=== PATIENT | female | born 1980 ===

== ENCOUNTER 2020-05-03 15:41 | Outpatient (REF) | payer OTHER, SELFPAY | END 2020-05-03 15:42 | disposition home or self-care (01) | LOC: HO.LAB 15:41 | PROVIDERS: Visit Provider Internal Medicine | DX: Z20.828 Contact with and (suspected) exposure to other viral communicable diseases (principal) | CPT/HCPCS: C9803; U0003 ==

== ENCOUNTER 2020-05-20 13:26 | Outpatient (REF) | payer OTHER, SELFPAY | END 2020-05-20 13:27 | disposition home or self-care (01) | LOC: HO.LAB 13:26 | PROVIDERS: Visit Provider Internal Medicine | DX: Z20.822 Contact with and (suspected) exposure to COVID-19 (principal) | CPT/HCPCS: 36415; C9803; U0003 ==

== ENCOUNTER 2020-06-14 10:35 | Emergency (ER) | payer OTHER, SELFPAY ==
[2020-06-14 11:05] VITALS: BP 140/69; PULSE 72; RESP 16; TEMP 36.9; O2SAT 100; BMI 26.9
--- NOTE | 2020-06-14 11:09 | ED_ITS ---
HPI - Skin/Abscess/Foreign Bdy General Chief complaint: Skin/Abscess/Foreign Body Stated complaint: SLIVER Time Seen by Provider: 06/14/20 11:09 Source: patient Mode of arrival: ambulatory Limitations: no limitations History of Present Illness HPI narrative: Right hand with splinter occurred at work complaint: foreign body Onset (ago): minute(s) Tetanus up to date: yes Location: R hand Severity: mild Context: none Treatments prior to arrival: other (Attempted room but she is right-hand dominant and couldnt with left hand) Related Data Allergies Allergy/AdvReac Type Severity Reaction Status Date / Time No Known Allergies Allergy Mild NONE Verified 06/14/20 11:04 Review of Systems Review of Systems: Constitutional: No Weight loss, No Fever, No Chills, No Night Sweats, No Fatigue, No Malaise ENT/Mouth: Negative Eyes: Negative Cardiovascular: Negative Respiratory: Negative Gastrointestinal: Negative Musculoskeletal: No joint pain, No Myalgias, No Joint Swelling Skin: No Skin Lesions, No rash, splinter in right hand as noted Neuro: Negative Psych: Negative Heme/Lymph: Negative Endocrine: Negative Yes all other systems are reviewed and are negative [facility] Social History Social History Alcohol intake: never Smoking Status: Never smoker Use of substances other than those prescribed or required for medical reasons: No Advance Directives: No Advance Directives Information Provided: Yes Physical Exam Vital Signs: Vital Signs: Last Vital Signs Temp 98.4 F 06/14/20 11:05 Pulse 72 06/14/20 11:05 Resp 16 06/14/20 11:05 BP 140/69 H 06/14/20 11:05 Pulse Ox 100 06/14/20 11:05 Body Mass Index 26.9 Reviewed Const: General: cooperative and healthy appearing; No acute distress or intoxicated appearing Nutritional Appearance: average body habitus Orientation/consciousness: patient oriented x3 HENMT: Head: Yes normal to inspection Ears: hearing grossly normal bilaterally Eyes: General: appearance normal, both eyes and all related structures Visual Pitt: normal visual pitt by confrontation Skin: General skin exam: no rashes or lesions noted Neuro: General: patient oriented x3 Extrem: General: Yes normal to inspection Hand/finger images: 1. Very superficial clearly visible less than 0.5 centimetre wooden splinter. Neurovascular intact. Full range of motion. No erythema or induration. Procedures Foreign Body Removal Site: right Description of foreign body: other (Wooden sliver) Sedation/Analgesia: none Technique: manual removal Complications: none Post-procedure exam: awake, alert Neurovascular: normal distal pulse, normal capillary fill, distal light touch sensation intact, distal motor function normal, no signs of compartment syndrome and other (Less than 0.5 cm wooden sliver removed with ease with forceps. Only went parallel to the skin and no additional foreign body.) Discharge Plan Discharge Clinical Impression: Embedded wood splinter Patient Disposition: Home, Self-Care Instructions: Soft Tissue Foreign Body (ED) Additional Instructions: Right palm very small with splinter which was removed with ease No evidence of any further foreign body Site was clean Home care as instructed Return if any concerns or worsening symptoms Thank you Referrals: Rohan Abdi MD [Primary Care Provider] - 1 week (As needed)
== END 2020-06-14 11:24 | disposition home or self-care (01) ==
PROVIDERS: Emergency Provider Emergency Medicine; PCP Internal Medicine
DX: L02.511 Cutaneous abscess of right hand (principal); M79.641 Pain in right hand
CPT/HCPCS: 10120; 99283; 99284

== ENCOUNTER 2020-07-20 12:56 | Emergency (ER) | payer OTHER, SELFPAY ==
--- NOTE | ~2020-07-20 | XR_ITS ---
EXAMINATION: XR KNEE, LEFT CLINICAL INFORMATION: Left knee pain. COMPARISON: None TECHNIQUE: Four views of the left knee. FINDINGS: Bones and soft tissues are normal. No fracture or joint effusion. Alignment is anatomic. Joint spaces are well maintained. No abnormal soft tissue calcification. XR/XR knee LT 3V IMPRESSION: Unremarkable left knee.
--- NOTE | ~2020-07-20 | US_ITS ---
EXAMINATION: US VENOUS ULTRASOUND WITH DOPPLER LOWER EXTREMITY, LEFT CLINICAL INFORMATION: Posterior knee pain and swelling. Intermittent lower extremity swelling. Lower extremity pain. COMPARISON: None TECHNIQUE: Ultrasound of the deep veins is performed from the hip to the calf with compression sonography and color and pulse Doppler assessment. Spectral analysis with color-flow imaging is performed. FINDINGS: There is normal venous compression and respiratory variation and augmented flow. The visualized common femoral vein, superficial femoral vein, profunda femoral vein, popliteal vein, and the trifurcation region shows no evidence of deep venous thrombosis. There is no significant popliteal fossa cyst. If the patient's symptoms persist, followup ultrasound in 5 days 7 days might be of value to exclude proximal propagation from a non-visualized calf vein. US/US venous duplex LE IMPRESSION: No DVT demonstrated in the left lower extremity.
[2020-07-20 13:11] VITALS: BP 113/50; PULSE 84; RESP 16; TEMP 36.7; O2SAT 98; BMI 27.3
--- NOTE | 2020-07-20 13:23 | ED_ITS ---
HPI - Extremity Injury (Lower) General Chief Complaint: Extremity Injury, Lower Stated Complaint: Leg pain No Injury Time Seen by Provider: 07/20/20 13:20 Source: patient Mode of arrival: ambulatory Limitations: no limitations History of Present Illness HPI Narrative: States has been having left knee pain for the past 1 week she does do a lot of longstanding and strenuous activity at work and has been having pain and posterior knee sometimes going down to left lower leg and intermittently but felt like it is swollen. Denies any recall of overt injury. MD complaint: knee injury Onset (ago): day(s) Relieving factors: immobilization and rest Exacerbating factors: movement Other symptoms: none Related Data Previous Rx's Medication Instructions Recorded ibuprofen 800 mg PO Q8H PRN #30 tab 07/20/20 Allergies Allergy/AdvReac Type Severity Reaction Status Date / Time No Known Allergies Allergy Mild NONE Verified 06/14/20 11:04 Review of Systems Review of Systems: Constitutional: No Weight loss, No Fever, No Chills, No Night Sweats, No Fatigue, No Malaise ENT/Mouth: No Hearing loss, No Ear Pain, No Nasal Congestion, No Sinus Pain, No Hoarseness, No sore throat, No Rhinorrhea, No Swallowing Difficulty Eyes: Negative Cardiovascular: No Chest Pain, No SOB, No Dyspnea on Exertion, No Orthopnea, No Edema, No Palpitations Respiratory: Negative Gastrointestinal: Negative Genitourinary: Negative Musculoskeletal: No joint pain, No Myalgias, No Joint Swelling, left lower extremity pain/knee pain as noted per HPI Skin: No Skin Lesions, No rash Neuro: No Weakness, No Numbness, No Paresthesias, No Loss of Consciousness, No Dizziness, No Headache Psych: No Social Issues Heme/Lymph: No Bruising, No Bleeding,No Lymphadenopathy Endocrine: No Polyuria, No Polydipsia, No Temperature Intolerance Yes all other systems are reviewed and are negative [facility] Past Medical History Medical History (Updated 07/20/20 @ 15:33 by Milton Zeng NP) Asthma Social History Social History Alcohol intake: never Smoking Status: Never smoker Advance Directives: Yes Advance Directives Information Provided: No Advance Directives on File: No Physical Exam Vital Signs: Vital Signs: Last Vital Signs Temp 98.0 F 07/20/20 13:11 Pulse 84 07/20/20 13:11 Resp 16 07/20/20 13:11 BP 113/50 L 07/20/20 13:11 Pulse Ox 98 07/20/20 13:11 Body Mass Index 27.3 Reviewed Const: General: cooperative and healthy appearing; No acute distress or intoxicated appearing Nutritional Appearance: average body habitus Orientation/consciousness: patient oriented x3 HENMT: Head: Yes normal to inspection Ears: hearing grossly normal bilaterally Eyes: General: appearance normal, both eyes and all related structures Visual Anderson: normal visual anderson by confrontation Neck: Neck: Yes normal visual inspection, No positive Brudzinski's sign, No positive Kernig's sign and No tender Thyroid: Thyroid normal Chest: Chest palpation & inspection: normal inspection of the chest Resp: Effort & Inspection: normal respiratory effort Auscultation: clear to auscultation bilaterally Cardio: Jugular venous distension: no JVD Rhythm: regular rhythm Heart sounds: S1 normal heart sound present and S2 normal heart sound present : General: Yes no CVA tenderness Back/Spine/Pelvis: Back: no CVA tenderness Skin: General skin exam: no rashes or lesions noted Neuro: General: patient oriented x3 Extrem: General: Yes normal to inspection Left lower extremity: normal to inspection, full ROM, normal capillary refill and knee (State pain with exertion and certain movements when she walks.) Details: normal to inspection and normal ROM; no swelling; no edema and joint enlargement noted Course Course Course Narrative: The mentation injury versus arthralgia versus Griffiths cyst versus lower extremity DVT. No obvious infectious pathology on exam. Neurovascularly intact. Reevaluation(s) Reevaluation #1: X-ray without acute findings, left lower extremity ultrasound without evidence of DVT. Will send home with Sesar wrap, NSAIDs and ortho follow- up. MDM - Extremity Injury (Lower) Medical Records Attestation: I reviewed the patient's medical records. Lab Data Attestation: I reviewed the patient's lab results. Imaging Data Left lower extremity ultrasound: Radiologist's impression: [address] [id number] ReportSigned Patient: Yasmine MarleyMR#: [id number]: 1980Acct:[id number]/Sex: 40 / FADM Date: 07/20/20Loc: HO.EDAttending Dr: Ordering Physician: Milton Zeng NP Date of Service: 07/20/20 Procedure(s): US venous duplex LE LT Accession Number(s): [id number] cc: Milton Zeng [employer] DEPARTMENT SUPERVISOR~ EXAMINATION: US VENOUS ULTRASOUND WITH DOPPLER LOWER EXTREMITY, LEFT CLINICAL INFORMATION: Posterior knee pain and swelling. Intermittent lower extremity swelling. Lower extremity pain. COMPARISON: None TECHNIQUE: Ultrasound of the deep veins is performed from the hip to the calf with compression sonography and color and pulse Doppler assessment. Spectral analysis with color-flow imaging is performed. FINDINGS: There is normal venous compression and respiratory variation and augmented flow. The visualized common femoral vein, superficial femoral vein, profunda femoral vein, popliteal vein, and the trifurcation region shows no evidence of deep venous thrombosis. There is no significant popliteal fossa cyst. If the patient's symptoms persist, followup ultrasound in 5 days 7 days might be of value to exclude proximal propagation from a non-visualized calf vein. US/US venous duplex LE LT IMPRESSION: No DVT demonstrated in the left lower extremity. Dictated By:HILL GENAO MDSigned By:<Electronically signed by HILL GENAO MD in OV>07/20/20 1508 DD/ 1323TD/TT: Inseminator: MART Left knee x-ray: Radiologist's impression: [address] [id number] ReportSigned Patient: Yasmine MarleyMR#: [id number]: 1980Acct:[id number]/Sex: 40 / FADM Date: 07/20/20Loc: EDAttending Dr: Ordering Physician: Milton Zeng NP Date of Service: 07/20/20 Procedure(s): XR knee LT 3V Accession Number(s): [id number] cc: Milton Zeng [employer] DEPART[employer] SUPERVISOR~ EXAMINATION: XR KNEE, LEFT CLINICAL INFORMATION: Left knee pain. COMPARISON: None TECHNIQUE: Four views of the left knee. FINDINGS: Bones and soft tissues are normal. No fracture or joint effusion. Alignment is anatomic. Joint spaces are well maintained. No abnormal soft tissue calcification. XR/XR knee LT 3V IMPRESSION: Unremarkable left knee. Dictated By:ARIELLE BAUTISTA MDSigned By:<Electronically signed by ARIELLE BAUTISTA MD in OV>07/20/20 1415 DD/ 1323TD/TT: Inseminator: VIET Discharge Plan Discharge Clinical Impression: Acute knee pain Qualifiers: Laterality: left Qualified Code(s): M25.562 - Pain in left knee Patient Disposition: Home, Self-Care Instructions: Knee Pain (ED) Additional Instructions: Sesar wrap to the left knee Warm compresses Elevate frequently Anti-inflammatory such as ibuprofen as prescribed Follow-up as discussed Return if any concerns worsen symptom Thank you Prescriptions: New ibuprofen 800 mg tablet 800 mg PO Q8H PRN (Reason: pain) Qty: 30 RF: 0 Referrals: Devan Briggs MD [Physician] - 2 weeks Stand Alone Forms: Work/School Release Discharge Date/Time: 07/20/20 15:41
== END 2020-07-20 15:41 | disposition home or self-care (01) ==
PROVIDERS: Emergency Provider Emergency Medicine; PCP Internal Medicine
DX: M25.562 Pain in left knee (principal)
CPT/HCPCS: 73562; 93971; 99283; 99284

== ENCOUNTER 2020-08-07 08:08 | Outpatient (REF) | payer OTHER, SELFPAY ==
--- NOTE | ~2020-08-07 | XR_ITS ---
EXAMINATION: KNEE X-RAY CLINICAL INFORMATION: Left knee pain COMPARISON: Previous x-ray 07/20/2020 TECHNIQUE: Standing AP view of both knees and sunrise view of the left knee FINDINGS: Left knee: Bone alignment is normal. No fracture or dislocation is seen. The joint spaces are normal. Soft tissues are normal. Standing AP view of the right knee is unremarkable. XR/XR knee standing BI IMPRESSION: Unremarkable exam.
--- NOTE | ~2020-08-07 | XR_ITS ---
EXAMINATION: KNEE X-RAY CLINICAL INFORMATION: Left knee pain COMPARISON: Previous x-ray 07/20/2020 TECHNIQUE: Standing AP view of both knees and sunrise view of the left knee FINDINGS: Left knee: Bone alignment is normal. No fracture or dislocation is seen. The joint spaces are normal. Soft tissues are normal. Standing AP view of the right knee is unremarkable. XR/XR knee LT 2V IMPRESSION: Unremarkable exam.
== END 2020-08-07 08:09 | disposition home or self-care (01) ==
LOC: HO.HOSX 08:08
PROVIDERS: Visit Provider Physician Assistant
DX: M25.562 Pain in left knee (principal); M76.892 Other specified enthesopathies of left lower limb, excluding foot
CPT/HCPCS: 73560; 73565; 99202

== ENCOUNTER 2020-09-27 14:00 | Outpatient (RCR) | payer OTHER, SELFPAY ==
--- NOTE | 2020-08-29 15:37 | MHC.PT.EP ---
[facility] [place] Office [place] Office [place] Office [address] Gabriela Erickson [address] [phone] F: [phone] F: [phone] F: [phone] F: [phone] Physical Therapy Plan of Care Date of Evaluation: 08/29/20 Date of Surgery: Diagnosis: other specified enthesopathies of left lower limb, excluding foot Assessment: 40 y/o female referred to PT with 'other enthesopathies.' She has had pain for one year of left lower leg into her foot that gets swollen and painful resulting in pain and difficulty with prolonged standing, walking, and wearing shoes/socks. Examination shows WNL knee AROM, decreased lumbar and L hip AROM, decreased L LE strength, no noted edema, increased pain, and impaired gait pattern. S/s consistent with hip and lumbar dysfunction. Recommend PT 2x/week for 5 weeks to address impairments, implement HEP, and optimize functional mobility. Frequency and Duration: The patient will be seen 2x/week for 5 weeks Short Term Goals: 3 weeks 1. I with HEP 2. Pt will improve hip flexion to 115 3. pt will demonstrate WNL lumbar AROM Half-Way Goals: 5 weeks 1. I with HEP and self management of sx 2. Pt will be able to walk > 15 min with pain < 3/10 and heel strike initial contact 3. Pt will be able to stand > 60 min with pain < 3/10 Treatment Plan: Modalities to reduce pain, spasms and effusion. Manual therapy to restore motion and function. Therapeutic exercise to improve strength and flexibility. Neuromuscular re-education for posture and balance. Therapeutic activities to return to functional activities of daily living. Electronically signed by: Misty Sena PT Please sign and return to therapist. Thank you for your referral.
--- NOTE | 2020-11-12 15:48 | MHC.PT.DC ---
[facility] [place] Office [place] Office [place] Office [address] Gabriela Erickson [address] [phone] F: [phone] F: [phone] F: [phone] F: [phone] Physical Therapy Discharge Report Diagnosis: other specified enthesopathies of left lower limb, excluding foot Date of Surgery: Date of Evaluation: 08/29/20 Date of Discharge: 11/12/20 Treatments to Date: 5 Cancellations to Date: 4 No Shows to Date: 1 Discharge Status: Discharge Summary: Pt did not f/u with further visits and d/c at this time. At time of last session, pt to have an MRI at [facility] September 24 MD follow up September 25. 09/27 per pt she is going to be OOW x 3 weeks in a LE boot?? per MD. All ex done on mat pt advised to contact MD to clarify activity for PT. Will discuss plan with primary PT. Electronically signed by: Misty Sena PT Please sign and return to therapist. Thank you for your referral.
== END 2020-11-12 15:48 | disposition home or self-care (01) ==
LOC: HO.PT 14:00
PROVIDERS: Visit Provider Physician Assistant
DX: M76.892 Other specified enthesopathies of left lower limb, excluding foot (principal)
CPT/HCPCS: 97110; 97162

== ENCOUNTER 2023-04-16 15:54 | Emergency (ER) | payer OTHER, SELFPAY ==
--- NOTE | ~2023-04-16 | XR_ITS ---
EXAMINATION: XR CHEST CLINICAL INFORMATION: Cough. Shortness of breath. COMPARISON: None available. TECHNIQUE: 2 views of the chest were obtained. FINDINGS: No significant abnormality is noted involving the heart, lungs, mediastinum, bony thorax or soft tissues. XR/XR chest 2V IMPRESSION: Unremarkable examination.
[2023-04-16 16:00] VITALS: BP 123/65; PULSE 88; RESP 16; TEMP 36.8; O2SAT 98; BMI 29.3
--- NOTE | 2023-04-16 16:02 | ED_ITS ---
HPI - URI/Sore Throat General Chief Complaint: Upper Respiratory Symptoms Stated Complaint: sob,asthma Time Seen by Provider: 04/16/23 16:45 Source: patient, RN notes reviewed and old records reviewed Mode of arrival: ambulatory History of Present Illness HPI Narrative: 43-year-old female with past medical history of asthma, COVID-19 positive last week, presenting to the ED complaining of persistent dry cough since COVID-19 diagnosis. Admits to using inhaler at home with some relief. Reports mild SOB and chest tightness. Denies fever, chills, chest pain, recent travel, pedal edema, sore throat ear pain MD elicited complaint: cough Related Data Home Medications Medication Instructions Recorded Confirmed albuterol sulfate 2.5 mg/3 mL 2.5 mg inhalation Q6H 08/07/20 (0.083 %) solution for nebulization Previous Rx's Medication Instructions Recorded ibuprofen 800 mg tablet 800 mg PO Q8H PRN pain #30 tabs 07/20/20 benzonatate 100 mg capsule 100 mg PO TID PRN cough #14 caps 04/16/23 hydrocodone-homatropine 5 mg-1.5 5 ml PO Q4-6H PRN cough 3 days #60 04/16/23 mg/5 mL (5 mL) oral syrup (Hycodan) mL prednisone 20 mg tablet 40 mg (2 x 20 mg) PO DAILY 5 days 04/16/23 #10 tabs Allergies Allergy/AdvReac Type Severity Reaction Status Date / Time No Known Allergies Allergy Mild NONE Verified 08/07/20 09:10 Review of Systems Review of Systems: Constitutional: No Fever, No Chills ENT/Mouth: No Ear Pain, No Nasal Congestion, No Sinus Pain, No Hoarseness, No sore throat, No Rhinorrhea, No Swallowing Difficulty Cardiovascular: No Chest Pain, No SOB Respiratory: + Cough, No Sputum, No Wheezing Gastrointestinal: No Nausea, No Vomiting, No Abdominal pain Musculoskeletal: No joint pain, No Myalgias, No Joint Swelling Skin: No Skin Lesions, No rash Neuro: No Weakness Yes all other systems are reviewed and are negative Constitutional: Constitutional: Reports as per [facility] Past Medical History Attestation statement: The following information was validated with the patient. Source: old records reviewed Medical History Asthma Social History Social History Alcohol intake: never Advance Directives: No Advance Directives Information Provided: No Current occupational status: employed Current occupation: [employer] Physical Exam Vital Signs: Vital Signs: Last Vital Signs Temp 98.2 F 04/16/23 16:00 Pulse 77 04/16/23 17:23 Resp 20 04/16/23 17:23 BP 123/65 04/16/23 16:00 Pulse Ox 98 04/16/23 16:00 O2 Del Method Room Air 04/16/23 16:00 BMI result Body Mass Index 29.3 Const: General: cooperative, healthy appearing and no acute distress Orientation/consciousness: patient oriented x3 Limitations: no limitations HEENT: Head: Yes normal to inspection and Yes atraumatic Ears: hearing grossly normal bilaterally General nose exam: Normal external nose present Face and sinus: Yes normal facial exam Throat: Yes posterior oropharynx normal, Yes tonsils normal, Yes uvula midline and No uvular edema Eyes: General: appearance normal, both eyes and all related structures EOM: EOMs intact bilaterally Neck: Neck: Yes normal visual inspection and Yes no meningeal signs Resp: Effort & Inspection: normal respiratory effort, Actively coughing Quality: actively coughing and no respiratory distress Auscultation: clear to auscultation bilaterally, no crackles, no rales, no rhonchi and no wheezes Cardio: Rate: regular rate Heart sounds: S1 normal heart sound present and S2 normal heart sound present Skin: Rashes: no rashes Wounds: no wounds Neuro: General: patient oriented x3, tone normal and no meningeal signs Cranial nerves: Yes CN's II-XII intact bilaterally Gait exam (Neuro): Normal gait present Extrem: General: Yes normal to inspection Course Course Course Narrative: This is an RME: Additional HPI, ROS, PE not included below will be deferred to primary provider. Patient is a 43-year-old female who presents emergency department for evaluation. She reports that she Tested positive for COVID-19 1 week ago, reports negative testing 2 days ago, continues to have cough, shortness of breath, has had no relief from inhaler/nebulizer. XR chest 2V IMPRESSION: Unremarkable examination. -Flu negative >Results discussed with patient including worrisome signs and symptoms and strict return precautions, and when to return to the emergency department. They verbalized understanding and feel safe for discharge at this time. Medications Administered Discontinued Medications Generic Name Dose Route Start Last Admin Trade Name Radha PRN Reason Stop Dose Admin Albuterol/Ipratropium 3 ml 04/16/23 16:56 04/16/23 17:19 Albuterol/Iprat 2.5/0.5mg 3 Ml Ampul.Neb INHALE 04/16/23 16:57 3 ml ONCE ONE Administration Benzonatate 100 mg 04/16/23 17:07 04/16/23 17:20 Benzonatate 100 Mg Capsule PO 04/16/23 17:08 100 mg ONCE ONE Administration Hydrocodone Bit/Homatropine Methylb 5 ml 04/16/23 17:07 04/16/23 17:20 Hydrocodone/Homat 5/1.5/5 Ml 5 Ml Syrup PO 04/16/23 17:08 5 ml ONCE ONE Administration Prednisone 40 mg 04/16/23 16:56 04/16/23 17:22 Prednisone 20 Mg Tablet PO 04/16/23 16:57 40 mg ONCE ONE Administration Medical Decision Making Medical Decision Making MDM Narrative: 43-year-old female with past medical history of asthma, COVID-19 positive last week, presenting to the ED complaining of persistent dry cough since COVID-19 diagnosis. On exam vital signs stable, NAD, nontoxic appearing, persistent dry cough appreciated. Lungs CTA. Concern for viral illness vs pneumonia vs bronchitis. Low suspicion for ACS/PE or DVT Plan: CXR, influenza testing, DuoNeb, p.o. prednisone/Tessalon Perle and Hycodan Please refer to course for remaining clinical decision making, interpretation of labs/imaging results, and discussions with consultants and/or family members. Differential Diagnosis Differential Diagnoses: The differential diagnosis associated with the presentation includes As above Admission/Observation Consideration of admission/observation: Escalation of care including admission/observation considered Lab Data [facility] Lab Attestation statement: I reviewed the patient's lab results. Labs: Lab Results 04/16/23 Range/Units 17:00 Influenza Type A (JO) Negative (Negative) Influenza Type B (JO) Negative (Negative) Influenza A & B Note See Note Independent Interpretation I performed an independent interpretation of an: Plain X-Ray Radiology Impression Discussion of test interpretation with radiology: I have reviewed the radiologist's reading. External Record Review External record reviewed: Inpatient record, Office record, Outpatient record, Prior outpatient labs, Prior outpatient radiology, Primary care record and Outside ED record Tests considered The following testing was considered but not selected: As above Prescription Management I considered prescription management with: Pain Medication and Antibiotic Chronic Conditions Patient?s care impacted by: Other (asthma) Discharge Plan Discharge Clinical Impression: Bronchitis Patient Disposition: Home, Self-Care Instructions: Acute Bronchitis (ED) Additional Instructions: Your x-ray does not show pneumonia. You likely have bronchitis Continue to use inhaler at home It is recommended you have a nebulizer machine at home, please talk to your PCP about this Tessalon Perles for cough, take as needed Hycodan is a in opiate cough medication, take only when cough is severe for the next 3 days Prednisone as a steroid Follow-up with her doctor if Symptoms persist or worsen return to the ED Prescriptions: New prednisone 20 mg tablet 40 mg PO DAILY 5 Days Qty: 10 0RF benzonatate 100 mg capsule 100 mg PO TID PRN (Reason: cough) Qty: 14 0RF hydrocodone-homatropine [Hycodan] 5-1.5 mg/5 mL (5 mL) syrup 5 ml PO Q4-6H PRN (Reason: cough) 3 Days Qty: 60 0RF Rx Instructions: Partial Fill upon patient request. No Action ibuprofen 800 mg tablet 800 mg PO Q8H PRN (Reason: pain) Qty: 30 0RF Referrals: Physician,Unknown J [Primary Care Provider] - 1 week
[2023-04-16] MEDS: Albuterol/Iprat 2.5/0.5MG 3 ML AMPUL.NEB INHALE (17:19)
[2023-04-16] MEDS: HYDROcodone/Homat 5/1.5/5 ML 5 ML SYRUP PO (17:20)
[2023-04-16] MEDS: Benzonatate 100 MG CAPSULE PO (17:20)
[2023-04-16] MEDS: predniSONE 20 MG TABLET 40 MG PO (17:22)
[2023-04-16 17:23] VITALS: PULSE 77; RESP 20; O2SAT 98
[2023-04-16 17:27] LABS: IDNOW Serial# 9DB6401D; Influenza A Negative (Negative); Influenza B2 Negative (Negative)
== END 2023-04-16 18:07 | disposition home or self-care (01) ==
PROVIDERS: Physician Assistant; Emergency Provider Emergency Medicine Emergency Medical Services
DX: J40 Bronchitis, not specified as acute or chronic (principal); R06.02 Shortness of breath; R07.89 Other chest pain; R05.9 Cough, unspecified; Z79.899 Other long term (current) drug therapy; Z20.828 Contact with and (suspected) exposure to other viral communicable diseases; Z20.822 Contact with and (suspected) exposure to COVID-19
CPT/HCPCS: 71046; 87502; 94640; 99283; 99284

== ENCOUNTER 2023-05-17 14:08 | Emergency (ER) | payer OTHER, SELFPAY ==
--- NOTE | ~2023-05-17 | XR_ITS ---
EXAMINATION: XR FOOT, LEFT CLINICAL INFORMATION: Pain in the bottom of the left foot. COMPARISON: None available. TECHNIQUE: AP, lateral, and oblique views of the left foot. FINDINGS: No evidence of acute fracture or dislocation. Normal osseous mineralization. No focal erosion. Small posterior calcaneal spur is noted at the insertion of Achilles tendon. Soft tissue swelling is noted over the dorsum of the foot. No evidence of radiopaque foreign body, soft tissue calcifications or soft tissue air. XR/XR foot LT 2V IMPRESSION: No acute or significant osseous abnormality noted.
[2023-05-17 14:29] VITALS: BP 117/57; PULSE 84; RESP 18; TEMP 36.9; O2SAT 99
--- NOTE | 2023-05-17 14:29 | ED_ITS ---
HPI - General Adult General Chief complaint: Extremity Injury, Lower Stated complaint: L leg/foot pain Time Seen by Provider: 05/17/23 17:31 Source: patient Mode of arrival: ambulatory Limitations: no limitations History of Present Illness HPI narrative: Patient comes to emergency room complaining of a left foot pain on the plantar aspect for 2 years. Patient states that when she walks she feels small nodule in her foot which hurts. Patient states that she has been seen by Podiatry, has had physical therapy, was diagnosed with tendinitis, has had cortisone shots but nothing is helping. Patient denies any numbness or tingling Related Data Home Medications Medication Instructions Recorded Confirmed albuterol sulfate 2.5 mg/3 mL 2.5 mg inhalation Q6H 08/07/20 (0.083 %) solution for nebulization Previous Rx's Medication Instructions Recorded ibuprofen 800 mg tablet 800 mg PO Q8H PRN pain #30 tabs 07/20/20 benzonatate 100 mg capsule 100 mg PO TID PRN cough #14 caps 04/16/23 hydrocodone-homatropine 5 mg-1.5 5 ml PO Q4-6H PRN cough 3 days #60 04/16/23 mg/5 mL (5 mL) oral syrup (Hycodan) mL prednisone 20 mg tablet 40 mg (2 x 20 mg) PO DAILY 5 days 04/16/23 #10 tabs ibuprofen 600 mg tablet 600 mg PO Q8H PRN pain #20 tabs 05/17/23 Allergies Allergy/AdvReac Type Severity Reaction Status Date / Time No Known Allergies Allergy Mild NONE Verified 05/17/23 14:31 Review of Systems Review of Systems: Constitutional : No Weight loss, No Fever, No Chills, No Night Sweats, No Fatigue, No Malaise ENT/Mouth : No Hearing loss, No Ear Pain, No Nasal Congestion, No Sinus Pain, No Hoarseness, No sore throat, No Rhinorrhea, No Swallowing Difficulty Eyes: No Eye Pain, No Swelling, No Redness, No Foreign Body, No Discharge, No Vision Changes Cardiovascular : No Chest Pain, No SOB, No Dyspnea on Exertion, No Orthopnea, No Edema, No Palpitations Respiratory : No Cough, No Sputum, No Wheezing, No Smoke Exposure, No Dyspnea Gastrointestinal : No Nausea, No Vomiting, No Diarrhea, No Constipation, No abdominal Pain, No Hematochezia, No Melena Genitourinary : no irregular bleeding, No Dysuria, No Urinary Frequency, No Hematuria, No Urinary Incontinence, No Urgency, No Flank Pain, No Urinary Flow Changes, No Hesitancy Musculoskeletal : Complaining of pain in the ball of the foot on the left side for 2 years, No joint pain, No Myalgias, No Joint Swelling Skin : No Skin Lesions, No rash Neuro : No Weakness, No Numbness, No Paresthesias, No Loss of Consciousness, No Dizziness, No Headache Psych : No Anxiety/Panic, No Depression, No SI/HI/AH/VH, No Social Issues, Heme/Lymph: No Bruising, No Bleeding,No Lymphadenopathy Endocrine : No Polyuria, No Polydipsia, No Temperature Intolerance PMFSH Past Medical History Onset Date is defined in the Problem List Problems that require an onset date and time if occurred within 24 hrs of arrival to the ED Aortic Dissection and Rupture; Neurologic impairment; Cardiopulmonary Arrest; Endotracheal Intubation; Insertion or Replacement of Mechanical Circulatory Assist Device Medical History Asthma Social History Social History Alcohol intake: never Advance Directives: No Advance Directives Information Provided: No Current occupational status: employed 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 Oriented X3. No acute distress. Eyes: Pupils equal, round and reactive to light. ENT: Pharynx normal. Neck: Normal inspection. Neck supple. No lymph nodes noted. No crepitus CVS: Normal heart rate and rhythm. Pulses normal. Normal S1 and S2 Respiratory: No respiratory distress. Breath sounds normal. No Wheezing. No rales Abdomen: Soft and nontender. No rigidity. No distention. Skin: Skin warm and dry. Normal skin color. Normal skin turgor. Extremities: No lower extremity edema. No Lacerations. No Rash. Pain to palpation on the plantar aspect of the left foot between metatarsals. Very small nodule palpable, movable. Neuro: Oriented X 3. No motor deficit. No sensory deficit. Moving all extremities. No slurred speech. CN 2 through 12 grossly intact Psych: calm, cooperative, normal affect Course Course Course Narrative: This is a rapid medical exam. deferred additional HPI, ROS, PE to primary provider. 43 yo female here with complaints of left foot pain, worsened with WB and concern for lump she feels on the foot acute on chronic x 3 weeks (although has had pain for years). Will obtain x-rays VSS Medical Decision Making Medical Decision Making [facility] Narrative: -my interpretation of x-ray of the left foot: No obvious abnormalities. No fractures -I discussed the physical exam with the patient, patient likely has a Valles's neuroma, patient will follow-up with her primary care physician, may need to be referred to Podiatry. 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 If you have any worsening or new symptoms, please return to the emergency room or call 911 Prescriptions: New ibuprofen 600 mg tablet 600 mg PO Q8H PRN (Reason: pain) Qty: 20 0RF No Action ibuprofen 800 mg tablet 800 mg PO Q8H PRN (Reason: pain) Qty: 30 0RF prednisone 20 mg tablet 40 mg PO DAILY 5 Days Qty: 10 0RF benzonatate 100 mg capsule 100 mg PO TID PRN (Reason: cough) Qty: 14 0RF hydrocodone-homatropine [Hycodan] 5-1.5 mg/5 mL (5 mL) syrup 5 ml PO Q4-6H PRN (Reason: cough) 3 Days Qty: 60 0RF Rx Instructions: Partial Fill upon patient request.
--- NOTE | 2023-05-17 19:12 | PC.NURSE ---
This RN took over pt assignment @ 1911. Pt ready for d/c prior to this RNs arrival.
== END 2023-05-17 19:16 | disposition home or self-care (01) ==
PROVIDERS: Emergency Provider Emergency Medicine
DX: G57.62 Lesion of plantar nerve, left lower limb (principal); M79.672 Pain in left foot; Z79.899 Other long term (current) drug therapy
CPT/HCPCS: 73620; 99283; 99284

== ENCOUNTER 2024-02-02 10:40 | Emergency (ER) | payer OTHER, SELFPAY ==
--- NOTE | ~2024-02-02 | XR_ITS ---
EXAMINATION: XR FOOT, RIGHT CLINICAL INFORMATION: Puncture wound. Evaluate for plantar foreign body. COMPARISON: None available. TECHNIQUE: AP, lateral, and oblique views of the right foot. FINDINGS: No radiopaque foreign body. No fracture or dislocation. No joint space narrowing or marginal osteophytes. Tiny dorsal calcaneal spur. XR/XR foot RT min 3V IMPRESSION: 1. No radiopaque foreign body. 2. Tiny dorsal calcaneal spur. Electronically signed by: David Baig MD 02/02/2024 12:01 PM EDT
--- NOTE | 2024-02-02 11:06 | ED_ITS ---
HPI - General Adult General Chief complaint: Skin/Abscess/Foreign Body Stated complaint: r foot pain Time Seen by Provider: 02/02/24 11:26 Source: patient, RN notes reviewed and old records reviewed Mode of arrival: ambulatory History of Present Illness ED Provider: Alba Urban PA-C HPI narrative: 43-year-old female with a past medical history of asthma presenting to ED complaining right foot pain s/p accidentally stepping on a broken wine glass a few days ago. Reports increasing pain with ambulation and weight-bearing. States was wearing Crocs at time of incident. Denies injury to other area. Concern for retained glass. Tetanus unknown. Related Data Home Medications ?Medication ?Instructions ?Recorded ?Confirmed albuterol sulfate 2.5 mg/3 mL 2.5 mg inhalation Q6H 08/07/20 (0.083 %) solution for nebulization Previous Rx's ?Medication ?Instructions ?Recorded ibuprofen 800 mg tablet 800 mg PO Q8H PRN pain #30 tabs 07/20/20 benzonatate 100 mg capsule 100 mg PO TID PRN cough #14 caps 04/16/23 hydrocodone-homatropine 5 mg-1.5 5 ml PO Q4-6H PRN cough 3 days #60 04/16/23 mg/5 mL (5 mL) oral syrup (Hycodan) mL prednisone 20 mg tablet 40 mg (2 x 20 mg) PO DAILY 5 days 04/16/23 #10 tabs ibuprofen 600 mg tablet 600 mg PO Q8H PRN pain #20 tabs 05/17/23 cephalexin 500 mg capsule 500 mg PO QID 5 days #20 caps 02/02/24 Allergies Allergy/AdvReac Type Severity Reaction Status Date / Time No Known Allergies Allergy Mild NONE Verified 02/02/24 11:10 Review of Systems Review of Systems: Yes all other systems are reviewed and are negative Constitutional: Constitutional: Reports as per [facility] Past Medical History Attestation statement: The following information was validated with the patient. 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 Vital Signs: Vital Signs - 24 hr 02/02/24 11:07 Temperature 97.3 F Pulse Rate 84 Respiratory Rate 16 Blood Pressure 112/70 Pulse Oximetry 98 Oxygen Delivery Method Room Air BMI result Body Mass Index 29.3 Const General: cooperative, healthy appearing and no acute distress Orientation/consciousness: patient oriented x3 Limitations: no limitations HENMT Head: Yes normal to inspection and Yes atraumatic Ears: hearing grossly normal bilaterally General nose exam: Normal external nose present Face and sinus: Yes normal facial exam Eyes General: appearance normal, both eyes and all related structures EOM: EOMs intact bilaterally Neck Neck: Yes normal visual inspection and Yes no meningeal signs Resp Effort & Inspection: normal respiratory effort and no respiratory distress Cardio Rate: regular rate Skin Other: +small puncture wound noted to plantar aspect of right foot. No surrounding erythema, drainage, or crepitus. + tender to palpation. No palpable foreign body Rashes: no rashes Neuro General: patient oriented x3, tone normal and no meningeal signs Cranial nerves: Yes CN's II-XII intact bilaterally Gait exam (Neuro): Normal gait present Extrem General: Yes normal to inspection Course Course Course Narrative: This is a rapid medical exam performed by Teresa Ricardo NP: Additional HPI, ROS, PE not included below will be deferred to primary provider. Patient is a 43-year-old Norwegian speaking female presenting to the ED with right foot pain. Wednesday she was at the dinner table and her child broke a glass. She stepped on the stem of the glass while wearing crocs and has had pain since, feels the area is becoming more red. Unsure last tetanus. Plan: Tdap, xray XR foot RT min 3V IMPRESSION: 1. No radiopaque foreign body. 2. Tiny dorsal calcaneal spur. Results discussed with patient including worrisome signs and symptoms and strict return precautions, and when to return to the emergency department. They verbalized understanding and feel safe for discharge at this time. Medical Decision Making Medical Decision Making [facility] Narrative: 43-year-old female with a past medical history of asthma presenting to ED complaining right foot pain s/p accidentally stepping on a broken wine glass a few days ago. On exam vital signs stable, NAD, nontoxic appearing, physical exam as noted above. Concern for retained glass vs contusion. No evidence of cellulitis at this time Plan: X-ray, Tdap, prophylactic antibiotics Please refer to course for remaining clinical decision making, interpretation of labs/imaging results, and discussions with consultants and/or family members. Differential Diagnosis Differential Diagnoses: The differential diagnosis associated with the presentation includes As above Independent Interpretation I performed an independent interpretation of an: Plain X-Ray Radiology Impression Discussion of test interpretation with radiology: I have reviewed the radiologist's reading. Independent Historian Clinical information obtained from an independent historian. History obtained from or confirmed by: Spouse External Record Review External record reviewed: Inpatient record, Office record, Outpatient record, Prior outpatient labs, Prior outpatient radiology, Primary care record and Outside ED record Tests considered The following testing was considered but not selected: As above Prescription Management I considered prescription management with: Pain Medication and Antibiotic Discharge Plan Discharge Clinical Impression: Puncture wound of foot Patient Disposition: Home, Self-Care Instructions: Puncture Wound in the Foot (ED) Additional Instructions: Your x-ray does not show any retained glass Keep area dry and clean Keflex antibiotic please take as prescribed. If area Begins to look infected, as red, there is pus drainage or you develop fever return to the ED Prescriptions: New cephalexin 500 mg capsule 500 mg PO QID 5 Days Qty: 20 0RF No Action ibuprofen 800 mg tablet 800 mg PO Q8H PRN (Reason: pain) Qty: 30 0RF ibuprofen 600 mg tablet 600 mg PO Q8H PRN (Reason: pain) Qty: 20 0RF prednisone 20 mg tablet 40 mg PO DAILY 5 Days Qty: 10 0RF benzonatate 100 mg capsule 100 mg PO TID PRN (Reason: cough) Qty: 14 0RF hydrocodone-homatropine [Hycodan] 5-1.5 mg/5 mL (5 mL) syrup 5 ml PO Q4-6H PRN (Reason: cough) 3 Days Qty: 60 0RF Rx Instructions: Partial Fill upon patient request. Referrals: Physician,Unknown J [Primary Care Provider] - 5 days Print Language: Norwegian
[2024-02-02 11:07] VITALS: BP 112/70; PULSE 84; RESP 16; TEMP 36.3; O2SAT 98; BMI 29.3
[2024-02-02] MEDS: Diphth,Pertus(ACell),Tet Adult 0.5 ML SYRINGE IM (12:28)
[2024-02-02 12:30] VITALS: BP 112/70; PULSE 84; RESP 16; TEMP 36.3; O2SAT 98
== END 2024-02-02 12:30 | disposition home or self-care (01) ==
PROVIDERS: Emergency Provider Emergency Medicine
DX: S91.331A Puncture wound without foreign body, right foot, initial encounter (principal); W25.XXXA Contact with sharp glass, initial encounter; M79.671 Pain in right foot; Y93.89 Activity, other specified; Y92.000 Kitchen of unspecified non-institutional (private) residence as the place of occurrence of the external cause; Y99.9 Unspecified external cause status; J45.909 Unspecified asthma, uncomplicated; Z23 Encounter for immunization
CPT/HCPCS: 73630; 90471; 90715; 99282; 99284